=== PATIENT | male | born 1970 | race Caucasian/White ===

== ENCOUNTER 2024-07-06 17:28 | Inpatient (IN) ==
--- NOTE | 2024-07-06 18:27 | Emergency Department Note ---
Impression & Plan Chest pain, Non-ST elevation SD (NSTEMI) ED Provider Note HISTORY OF PRESENT ILLNESS: Patient is a 54-year-old male presenting with chest pain and left arm pain. Patient reports about 1 hour prior to arrival, he was driving his car when he suddenly developed a left-sided chest pressure and his left arm started to hurt. He denies any diaphoresis, nausea or vomiting. Denies any significant shortness of breath with the pain. Reports that pain was very intense at onset, but is since decreased in intensity. He currently is complaining of pain in the left arm and about 2 out of 10. He states that he became lightheaded with the pain but denies any radiation into the abdomen or into the back. He denies any changes in vision with the chest pain. He describes the pain as a "fullness" sensation in his chest "like I ate too much." Patient denies any history of cardiac stents. Denies any DVT or PE history. He is not on any anticoagulation or antiplatelet therapy. He did take an 81 mg aspirin prior to arrival given his symptoms. He does report a significant family history of cardiac disease. Denies any tobacco use. He has never had a stress test before. ROS: as above PHYSICAL EXAM: Constitutional: Patient appears in no acute distress. HENT: Head: Normocephalic and atraumatic. Eyes: EOMI, PERRL Mouth/Throat: Mucous membranes moist. Neck: Trachea midline. Neck supple. Cardiovascular: RRR, No murmurs, rubs or gallops. Intact distal pulses. Pulmonary/Chest: No respiratory distress. Breath sounds clear and equal bilaterally. No wheezes or rales. Abdominal: Abdomen soft, no tenderness, rebound or guarding. Musculoskeletal: No edema, tenderness or deformity noted. Skin: Warm and dry. No rash, erythema, pallor or cyanosis Psychiatric: Appropriate mood and affect for situation. Neurological: Alert and keenly responsive. CN II-XII grossly intact, moving all extremities equally and fully. MDM: - Vitals signs showed hypertension - History obtained via patient. History as above. - Chronic conditions affecting care: GERD - Differential diagnoses include, but are not limited to: Acute coronary syndrome; pulmonary embolism; dissection; tension pneumothorax; esophageal rupture; pneumonia - Order placed for continuous cardiac monitoring. At this time, monitor showed rate of 82 bpm with normal sinus rhythm, per my interpretation. - External medical records reviewed. Primary care visit note dated 05/15/2024 was reviewed. Patient was seen for bilateral lower abdominal pain and thought to be due to constipation. - EKG image interpreted by myself showed normal sinus rhythm. Rate 75 bpm. QT 398. No acute ischemic changes. - Laboratory workup interpreted by myself showed normal WBC; normal PT/NR; stable electrolytes; elevated troponin (31.9); normal lipase - CXR image reviewed by myself is negative for pneumonia, per my interpretation. - While awaiting workup to be completed at 18:40, patient started complaining of chest pain and left arm pain again. A repeat EKG image obtained at 18:41 reviewed by myself showed normal sinus rhythm. Rate 75 bpm. QT 398. No acute ischemic changes. Patient was ordered 50 mcg IV fentanyl. - Patient took 81 mg PO aspirin earlier prior to arrival. Given 243 mg PO aspirin to complete aspirin load - HEART score 4 (History +1 moderately suspicious; EKG +0; Age +1; Risk factors +1; Initial troponin +1), amounting to a moderate score. - Repeat troponin ordered. - Patient with recurrent episodes of chest pain in the emergency department. Given his elevated troponin and no history of stress test or echocardiogram or formal cardiac workup, will admit to hospitalist service for further evaluation. - Discussion was had with top case assembler about patient's case and need for admission - Hospitalist consulted for admission - Patient admitted to [facility] hospitalist service for further evaluation and management. ASSESSMENT AND PLAN: Diagnosis: chest pain; NSTEMI Plan: admit Past Med/Surg History Problem List (Updated 07/06/24 @ 20:16 by Josefa Willingham MD) Non-ST elevation SD (NSTEMI) (Acute) Chest pain (Acute) Bilateral lower abdominal pain Surgical History (Updated 05/25/24 @ 07:59 by KACEY Garnett) H/O hernia repair 2017 Family History (Updated 05/25/24 @ 08:00 by KACEY Garnett) Grandmother Diabetes Sister Hypertension Myocardial infarction Mother Hypertension Myocardial infarction Father CHF (congestive heart failure) Prostate cancer Brother Prostate cancer Denies family history of Ovarian cancer Breast cancer Colorectal cancer Social History (Updated 05/25/24 @ 08:01 by KACEY Garnett) Smoking Status: Never smoker Second Hand Exposure: No; Do You Dip or Chew Tobacco: No; Hx Alcohol Use: Yes Alcohol Intake Frequency: Monthly or Less Hx Substance Use: No Preferred Language: [place] marital status: Current Living Situation: Spouse current occupational status: employed current occupation: [employer] Feels Safe at Home: Yes Diet: regular caffeine: Yes (tea) during the past year weight has: remained stable Dental Care, Regularly: No Physical Activity Frequency: 1-2 Times per Week Seatbelt Use: always Sunscreen Use: Yes Do you think of yourself as: straight/heterosexual Gender Identity: Male Allergies Allergies Allergy/AdvReac Type Severity Reaction Status Date / Time No Known Allergies Allergy Verified 05/25/24 07:55 Home Meds Home Medications Medication Instructions Recorded Confirmed ascorbic acid (vitamin C) 500 mg 500 mg PO DAILY 05/25/24 05/25/24 capsule,extended release ascorbic acid (vitamin C) 500 mg 500 mg PO DAILY 05/25/24 05/25/24 tablet cholecalciferol (vitamin D3) 50 50 mcg PO DAILY 05/25/24 05/25/24 mcg (2,000 unit) capsule glutathione 500 mg capsule mg PO 05/25/24 05/25/24 omega 0-gii-ffm-fish oil 60 mg-90 1 cap PO DAILY 05/25/24 05/25/24 mg-500 mg capsule (Fish Oil) omeprazole 20 mg capsule,delayed 20 mg PO DAILY 05/25/24 05/25/24 release Results & Data (ED) Vital Signs Vital Signs - 24 hr 07/06/24 17:29 07/06/24 17:46 07/06/24 17:57 Temperature 36.2 C L Temperature Source Temporal Artery Scan Pulse Rate 89 84 81 Pulse Rate [Apical] Respiratory Rate 20 18 Respiratory Effort / Characteristics Non-Labored Respiratory Depth Normal Blood Pressure 188/96 H Blood Pressure [Right Arm] Blood Pressure Mean 126 Blood Pressure Mean [Right Arm] Pulse Oximetry 97 97 Oxygen Delivery Method Room Air Room Air Sepsis Recent Fever Within 48 Hours No Sepsis New/Unexplained Change in Mental Status N/A Sepsis Action Taken by Nursing No Action Required 07/06/24 19:00 07/06/24 20:00 Temperature Temperature Source Pulse Rate Pulse Rate [Apical] 74 77 Respiratory Rate 16 16 Respiratory Effort / Characteristics Non-Labored Non-Labored Respiratory Depth Blood Pressure Blood Pressure [Right Arm] 170/98 H 172/114 H Blood Pressure Mean Blood Pressure Mean [Right Arm] 122 133 Pulse Oximetry 96 97 Oxygen Delivery Method Room Air Room Air Sepsis Recent Fever Within 48 Hours Sepsis New/Unexplained Change in Mental Status Sepsis Action Taken by Nursing Laboratory Data 07/06/24 18:40 07/06/24 18:40 Lab Results 07/06/24 Range/Units 18:40 WBC 9.47 (4.8-10.8) K/ul RBC 5.17 (4.70-6.10) M/uL Hgb 15.0 (14.0-18.0) g/dl Hct 43.8 (42.0-52.0) % MCV 84.7 (80.0-100.0) fL MCH 29.0 (25.0-34.0) pg MCHC 34.2 (32.0-36.0) g/dL RDW Std Deviation 38.9 (36.4-46.3) fL RDW Coeff of Geovanny 12.5 (11.5-14.5) % Plt Count 249 (130-400) K/uL MPV 9.2 L (9.4-12.4) fL Immature Gran % (Auto) 0.6 % Neut % (Auto) 75.6 % Lymph % (Auto) 12.6 % Prentiss % (Auto) 9.7 % Eos % (Auto) 1.3 % Baso % (Auto) 0.2 % Neut # (Auto) 7.16 H (1.40-6.50) K/uL Lymph # (Auto) 1.19 L (1.20-3.40) K/uL Prentiss # (Auto) 0.92 H (0.11-0.59) K/uL Eos # (Auto) 0.12 (0.00-0.50) K/uL Baso # (Auto) 0.02 (0.00-0.20) K/uL Immature Gran # (Auto) 0.06 (0.01-0.20) K/uL PT 10.2 (9.0-12.0) Seconds INR 0.9 (0.9-1.1) Sodium 142 (136-145) mmol/L Potassium 4.0 (3.5-5.1) mmol/L Chloride 108 H (98-107) mmol/L Carbon Dioxide 27 (21-32) mmol/L Anion Gap 7 (3-11) BUN 17 (6-23) mg/dl Creatinine 0.95 (0.6-1.4) mg/dl Est Cr Clr Drug Dosing 103.9 ml/min eGFR 95.12 BUN/Creatinine Ratio 17.9 (10-20) Glucose 106 H (70-99(Fasting)) mg/dl Calcium 8.9 (8.6-10.3) mg/dl Magnesium 2.1 (1.7-2.4) mg/dl Total Bilirubin 0.5 (0.2-1.0) mg/dl AST 16 (13-39) U/L ALT 22 (7-52) U/L Alkaline Phosphatase 53 (34-104) U/L Troponin I High Sens 31.9 H (0-20) pg/ml Total Protein 7.1 (6.0-8.3) gm/dl Albumin 4.6 (3.4-5.0) gm/dl Globulin 2.5 (2.5-4.0) gm/dl Albumin/Globulin Ratio 1.8 (0.9-2) Lipase 44 (11-82) U/L Administered Medications Discontinued Medications Aspirin (Aspirin Chew 324 Mg) 243 mg PO NOW STA Stop: 07/06/24 19:48 Last Admin: 07/06/24 20:26 Dose: 243 mg Documented By: SILVA Fentanyl Citrate (Fentanyl Citrate Pf 100 Mcg/2 Ml Vial) 50 mcg IV NOW STA Stop: 07/06/24 18:49 Last Admin: 07/06/24 19:02 Dose: 50 mcg Documented By: SILVA Ioversol (Optiray 320 125ml) 120 ml IV ONCE ONE Stop: 07/06/24 19:49 Last Admin: 07/06/24 19:49 Dose: 120 ml Documented By: EDK Imaging Data Radiologist's Impression: Chest X-Ray 07/06/24 17:46 EXAM: Portable AP chest radiograph TECHNIQUE: AP portable radiograph of the chest was obtained. INDICATION: Shortness of breath Comparison: Chest radiograph May 25, 2024 FINDINGS: LINES and TUBES: None CARDIOVASCULAR: Cardiac silhouette is stably mildly enlarged in size. LUNGS/PLEURA: Mild pulmonary vascular congestion. No focal consolidation identified. No significant pleural fluid. No discernible pneumothorax. OSSEOUS/OTHER: No displaced acute osseous process identified. IMPRESSION: Mild congestive changes of the cardiovascular system. Electronically signed by Sb Childress 07-06-2024 6:35 PM Chest CTA 07/06/24 18:48 EXAM: CT Angiography Chest Without and With Intravenous Contrast INDICATION: Chest pain TECHNIQUE: Axial computed tomographic angiography images of the chest without and with intravenous contrast. Sagittal and coronal reformatted images were created and reviewed. This CT exam was performed using one or more of the following dose reduction techniques: automated exposure control, adjustment of the mA and/or kV according to patient size, and/or use of iterative reconstruction technique. MIP reconstructed images were created and reviewed. CONTRAST: 120ml of Optiray 320 was administered intravenously. COMPARISON: No relevant prior studies available. FINDINGS: Pulmonary arteries: No abnormality noted. No pulmonary embolism. Aorta: No acute change noted. No thoracic aortic aneurysm or dissection. Lungs and pleural spaces: No abnormality noted. No mass. No consolidation. No significant effusion. No pneumothorax. Heart: Mild cardiomegaly. No right heart strain or pericardial effusion. Mild left anterior coronary calcification. Prominent left ventricular wall thickness of 1.8 cm. Bones/joints: No acute or atypical chronic changes. Soft tissues: No abnormality noted. Lymph nodes: No abnormality noted. No enlarged lymph nodes. Adrenals: There is a 3.5 x 2.6 by approximate 3.0 cm mild lipoma in the right adrenal gland. No hemorrhage. No further assessment necessary. Visualized portion of the adrenal glands otherwise unremarkable. IMPRESSION: 1. No aortic dissection or aneurysm. 2. No pulmonary embolus. 3. Mild cardiomegaly and left ventricular hypertrophy. There is mild left anterior coronary calcification. 4. No pulmonary infiltrate or pleural effusion. ACT 112: N/A Electronically signed by Trish Kearns 07-06-2024 8:16 PM Discharge Plan Visit Data Chief Complaint: Chest Pain ED Provider: Josefa Willingham Discharge Problem: Chest pain, Non-ST elevation SD (NSTEMI) Forms Stand Alone Forms: D-Share Prescriptions Prescriptions: No Action omeprazole 20 mg capsule,delayed release(DR/EC) 20 mg PO DAILY glutathione 500 mg capsule PO ascorbic acid (vitamin C) 500 mg capsule, extended release 500 mg PO DAILY omega 6-yrl-fue-fish oil [Fish Oil] 60-90-500 mg capsule 1 cap PO DAILY ascorbic acid (vitamin C) 500 mg tablet 500 mg PO DAILY cholecalciferol (vitamin D3) 50 mcg (2,000 unit) capsule 50 mcg PO DAILY Referrals Referrals: Evonne Byrne MD [Primary Care Provider] -
--- NOTE | 2024-07-06 18:35 | XRay Report ---
EXAM: Portable AP chest radiograph TECHNIQUE: AP portable radiograph of the chest was obtained. INDICATION: Shortness of breath Comparison: Chest radiograph May 25, 2024 FINDINGS: LINES and TUBES: None CARDIOVASCULAR: Cardiac silhouette is stably mildly enlarged in size. LUNGS/PLEURA: Mild pulmonary vascular congestion. No focal consolidation identified. No significant pleural fluid. No discernible pneumothorax. OSSEOUS/OTHER: No displaced acute osseous process identified. IMPRESSION: Mild congestive changes of the cardiovascular system. Electronically signed by Sb Childress 07-06-2024 6:35 PM
[2024-07-06] MEDS: fentaNYL citrate PF 100 MCG/2 ML VIAL IV STA (19:02)
[2024-07-06 19:07] LABS: Basophils # (auto) 0.02 K/uL (0.00-0.20); Basophils % (auto) 0.2 %; Eosinophils # (auto) 0.12 K/uL (0.00-0.50); Eosinophils % (auto) 1.3 %; Hematocrit (blood only) 43.8 % (42.0-52.0); Immature Granulocytes # (auto) 0.06 K/uL (0.01-0.20); Immature Granulocytes % (auto) 0.6 %; Lymphocytes # (auto) 1.19 K/uL (1.20-3.40); Lymphocytes % (auto) 12.6 %; Mean Corpuscular Hgb Conc 34.2 g/dL (32.0-36.0); Mean Corpuscular Volume 84.7 fL (80.0-100.0); Mean Platelet Volume 9.2 fL (9.4-12.4); Monocytes # (auto) 0.92 K/uL (0.11-0.59); Monocytes % (auto) 9.7 %; Neutrophils # (auto) 7.16 K/uL (1.40-6.50); Neutrophils % (auto) 75.6 %; Platelet Count 249 K/uL (130-400); RDW Coefficient of Variation 12.5 % (11.5-14.5); RDW Standard Deviation 38.9 fL (36.4-46.3); Red Blood Count 5.17 M/uL (4.70-6.10); White Blood Count 9.47 K/ul (4.8-10.8)
[2024-07-06 19:19] LABS: Albumin Globulin Ratio 1.8 (0.9-2); Albumin Level 4.6 gm/dl (3.4-5.0); BUN Creatinine Ratio 17.9 (10-20); Bilirubin,Total 0.5 mg/dl (0.2-1.0); Calcium 8.9 mg/dl (8.6-10.3); Creatinine Clr Calc Pharmacy 103.9 ml/min; Globulin 2.5 gm/dl (2.5-4.0); Magnesium 2.1 mg/dl (1.7-2.4); Total Protein 7.1 gm/dl (6.0-8.3)
[2024-07-06 19:25] LABS: Troponin I High Sensitivity 31.9 pg/ml (0-20)
[2024-07-06 19:39] LABS: INR 0.9 (0.9-1.1); Prothrombin Time 10.2 Seconds (9.0-12.0)
[2024-07-06] MEDS: OPTIRAY 320 125ml IV ONE (19:49)
--- NOTE | 2024-07-06 20:17 | CT Scan Report ---
EXAM: CT Angiography Chest Without and With Intravenous Contrast INDICATION: Chest pain TECHNIQUE: Axial computed tomographic angiography images of the chest without and with intravenous contrast. Sagittal and coronal reformatted images were created and reviewed. This CT exam was performed using one or more of the following dose reduction techniques: automated exposure control, adjustment of the mA and/or kV according to patient size, and/or use of iterative reconstruction technique. MIP reconstructed images were created and reviewed. CONTRAST: 120ml of Optiray 320 was administered intravenously. COMPARISON: No relevant prior studies available. FINDINGS: Pulmonary arteries: No abnormality noted. No pulmonary embolism. Aorta: No acute change noted. No thoracic aortic aneurysm or dissection. Lungs and pleural spaces: No abnormality noted. No mass. No consolidation. No significant effusion. No pneumothorax. Heart: Mild cardiomegaly. No right heart strain or pericardial effusion. Mild left anterior coronary calcification. Prominent left ventricular wall thickness of 1.8 cm. Bones/joints: No acute or atypical chronic changes. Soft tissues: No abnormality noted. Lymph nodes: No abnormality noted. No enlarged lymph nodes. Adrenals: There is a 3.5 x 2.6 by approximate 3.0 cm mild lipoma in the right adrenal gland. No hemorrhage. No further assessment necessary. Visualized portion of the adrenal glands otherwise unremarkable. IMPRESSION: 1. No aortic dissection or aneurysm. 2. No pulmonary embolus. 3. Mild cardiomegaly and left ventricular hypertrophy. There is mild left anterior coronary calcification. 4. No pulmonary infiltrate or pleural effusion. ACT 112: N/A Electronically signed by Trish Kearns 07-06-2024 8:16 PM
[2024-07-06] MEDS: ASPIRIN CHEW 324 MG PO STA (20:26)
--- NOTE | 2024-07-06 21:35 | History & Physical Report ---
Date of Service July 06, 2024 Assessment & Plan (1) Non-ST elevation [place] (NSTEMI): (2) GERD (gastroesophageal reflux disease): Plan 54 yo male PMHx GERD/PUD admitted for chest pain. Chest pain started today described as substernal burning pain that radiates down the left arm. #NSTEMI Trend trop q6h Echo ordered BMP, lipid panel ordered for AM Per cardiology, defer anticoagulation for now Pain control PRN EKG PRN chest pain Defer heparin for now CT Chest Shows: Mild cardiomegaly and left ventricular hypertrophy. There is mild left anterior coronary calcification. Will start statin Cardiology consult placed #GERD/Hx PUD Protonix 40mg daily while admitted FENGI: Heart healthy Code status: full DVT prophylaxis: Lovenox Isolation: none Disposition: med/tele History of Present Illness Primary Care Provider: Evonne Byrne MD 54 yo male PMHx GERD/PUD admitted for chest pain. Chest pain started today described as substernal burning pain that radiates down the left arm. This is the first time that he has experienced this type of chest discomfort. He does have an extensive family history of cardiac disease. He denies smoking history, he is not a big drinker. Early this year he changed his diet to incorporate more vegetables and lean proteins. Yesterday was his birthday and today he went out to lunch at [facility] where he consumed a heavy meal and two margaritas. At the time of admission the patient denies ongoing chest pain. ED Course EKG without ischemic changes CTPE largely unremarkable: 1. No aortic dissection or aneurysm. 2. No pulmonary embolus. 3. Mild cardiomegaly and left ventricular hypertrophy. There is mild left anterior coronary calcification. 4. No pulmonary infiltrate or pleural effusion. CXR reveals: Mild pulmonary vascular congestion Labs reveal: HS Trop 31.9 --> 118.8 Pt is hypertensive, otherwise VSS Received 324 ASA, fentanyl 50 mcg Allergies Allergy/AdvReac Type Severity Reaction Status Date / Time No Known Allergies Allergy Verified 07/06/24 22:16 Home Medications Medication Instructions Recorded Confirmed Type ascorbic acid (vitamin C) 500 mg 500 mg PO DAILY 05/25/24 07/06/24 History capsule,extended release omega 5-qjx-lpv-fish oil 60 mg-90 1 cap PO DAILY 05/25/24 07/06/24 History mg-500 mg capsule (Fish Oil) omeprazole 20 mg capsule,delayed 20 mg PO DAILY 05/25/24 07/06/24 History release aspirin 81 mg capsule 81 mg PO DAILY 07/06/24 07/06/24 History diclofenac sodium 75 mg 74 mg PO 2XD PRN Inflammation 07/06/24 07/06/24 History tablet,delayed release Past Med/Surg History Problem List (Updated 07/06/24 @ 22:04 by Constantin Aparicio DO) GERD (gastroesophageal reflux disease) Non-ST elevation WI (NSTEMI) (Acute) Chest pain (Acute) Bilateral lower abdominal pain Surgical History (Updated 05/25/24 @ 07:59 by KACEY Garnett) H/O hernia repair 2016 Family History (Updated 05/25/24 @ 08:00 by KACEY Garnett) Grandmother Diabetes Sister Hypertension Myocardial infarction Mother Hypertension Myocardial infarction Father CHF (congestive heart failure) Prostate cancer Brother Prostate cancer Denies family history of Ovarian cancer Breast cancer Colorectal cancer Social History (Updated 05/25/24 @ 08:01 by KACEY Garnett) Smoking Status: Never smoker Second Hand Exposure: No; Do You Dip or Chew Tobacco: No; Hx Alcohol Use: Yes Alcohol type: beer and hard liquor Alcohol Intake Frequency: Monthly or Less Hx Substance Use: No Preferred Language: Greek Communication Ability: Effective Information Services Assistant Required: No Beliefs That Will Affect Care: None marital status: Current Living Situation: Spouse current occupational status: employed current occupation: [employer] Other Information That Helps Us Care for You: No Feels Safe at Home: Yes Safety Concerns: Feels Safe At This Time Diet: regular caffeine: Yes (tea) during the past year weight has: remained stable Dental Care, Regularly: No Physical Activity Frequency: 1-2 Times per Week Seatbelt Use: always Sunscreen Use: Yes Do you think of yourself as: straight/heterosexual Gender Identity: Male Review of Systems Review of Systems: reviewed, per HPI Physical Exam Physical Exam: Constitutional: well-appearing, no acute distress, face flushed HEENT: NCAT, no conjunctival injection CV: regular rhythm, no murmur appreciated, extremities well-perfused, no LE edema Resp: CTABL, no wheezes/rales/rhonchi appreciated, no increased work of breathing GI: nondistended MSK: no gross deformities appreciated Skin: warm, dry, no rash appreciated Neuro: alert, oriented, no focal neurologic deficit appreciated Results & Data Results & Data Vital Signs (Past 12 Hours) Vital Signs Temp Pulse Pulse Resp BP BP Pulse Ox 07/06/24 21:00 87 18 163/111 H 93 07/06/24 20:00 77 16 172/114 H 97 07/06/24 19:00 74 16 170/98 H 96 07/06/24 17:57 81 07/06/24 17:46 84 18 97 07/06/24 17:29 36.2 C L 89 20 188/96 H 97 O2 Del Method 07/06/24 21:00 Room Air 07/06/24 20:00 Room Air 07/06/24 19:00 Room Air 07/06/24 17:57 07/06/24 17:46 Room Air 07/06/24 17:29 Room Air Code Status & VTE Plan VTE Prophylaxis Plan VTE Prophylaxis will be ordered: Yes Supervising Physician Co-Signing Physician Notes Attending addendum: I have physically seen this patient, have supervised the medical residents activities, and agree with the H&P unless as otherwise noted. Assessment and Plan: The patient is a 54-year-old male with a past medical history including GERD, peptic ulcer disease, arthritis, who presents to the emergency department with complaint of substernal burning pain that radiates down his left arm that began about 1 hour prior to arrival to the emergency department. He also notes that he became lightheaded while walking. Initial evaluation in the emergency department included elevated troponin 31.9, and chest x-ray suggestive of possible mild congestion, with with normal CT angiography of chest. [facility]ated troponin/substernal chest pain radiating to left arm- The patient will be admitted to telemetry for serial cardiac enzymes, serial EKG's, cardiac rhythm monitoring and a 2-D echocardiogram with Dopplers. No previous records of chest discomfort and or workup Initial troponin 31.9, with second troponin 118.8. Third troponin is 307.6. Patient will be placed on Nitropaste 1 inch anterior chest wall every 6 hours, and start metoprolol tartrate 25 mg p.o. now and then 25 mg p.o. twice daily. Check a fasting lipid panel and hemoglobin A1c CTA PE protocol is negative for PE, but does show mild cardiomegaly and LVH. There is mild left anterior coronary calcification noted Start statin per protocol Given aspirin 324 mg now, and 81 mg every morning Consult cardiology GERD/PUD history- Continue pantoprazole as formulary interchange from omeprazole Hold NSAIDs while patient is on antiplatelet effect of aspirin Resident Activity Tracking Resident Involvement: Resident Care Provided Care Provided: Adult [facility] Medicine
[2024-07-06] MEDS ORDERED: HEPARIN SOD (PORCINE) 1000 UNIT/ML IV ONE (21:50)
[2024-07-06] MEDS ORDERED: HEPARIN 25000 UNIT/500 ML D5W 25,000 UNITS/500 ML BAG IV SCH (22:00)
[2024-07-06] MEDS: FAMOTIDINE 20MG IV PUSH 20 MG/5 ML SYR IV STA (22:15)
[2024-07-06] MEDS ORDERED: ONDANSETRON INJ 2 MG/ML 2 ML VIAL IV PRN (22:46)
[2024-07-06] MEDS: Heparin IV Adult Wt-Based Standard w/ INITIAL Bolus Protocol IV STA (22:46)
[2024-07-06] MEDS ORDERED: MAGNESIUM HYDROXIDE SUSP 30 ML UDC PO PRN (22:46)
[2024-07-06] MEDS: ENOXAPARIN INJ 40 MG/0.4 ML SYR SQ SCH (23:35)
--- NOTE | 2024-07-07 03:56 | Billing Data ---
Date of Service July 07, 2024 Coding Level of Care Code 25481 INT INP/OBS CARE
[2024-07-07] MEDS: NITROGLYCERIN 2% OINTMENT 30GM TUBE EXT SCH (04:15)
[2024-07-07] MEDS: METOPROLOL TARTRATE 25 MG TAB PO STA (04:15)
[2024-07-07] MEDS: ROSUVASTATIN CALCIUM 20 MG TAB PO SCH (08:00)
[2024-07-07] MEDS: PANTOprazole 40 MG TAB PO SCH ×2 (08:00→20:10)
[2024-07-07] MEDS: METOPROLOL TARTRATE 25 MG TAB PO SCH (08:00)
[2024-07-07 08:31] LABS: BUN Creatinine Ratio 16.3 (10-20); Calcium 8.6 mg/dl (8.6-10.3); Chol HDL Ratio 6.8 (0-5); Creatinine Clr Calc Pharmacy 106.9 ml/min; Potassium 4.1 mmol/L (3.5-5.1)
[2024-07-07] MEDS: CALCIUM CARBONATE 500 MG CHEWABLE TAB PO PRN (09:28)
[2024-07-07] MEDS: ACETAMINOPHEN 500 MG TAB PO PRN (09:28)
[2024-07-07] MEDS: ALUMINUM/MAGNESIUM SUSP 30 ML UDC PO PRN (09:50)
--- NOTE | 2024-07-07 10:16 | XCELERA ---
[id number]
--- NOTE | 2024-07-07 10:20 | Hospitalist Progress Note ---
Date of Service July 07, 2024 Assessment & Plan (1) Non-ST elevation HI (NSTEMI): (2) GERD (gastroesophageal reflux disease): Plan 54 yo male PMHx GERD/PUD admitted for chest pain. Chest pain started today described as substernal burning pain that radiates down the left arm. #NSTEMI Still complaining of chest/right flank discomfort, radiating to the shoulder CT Chest Shows: Mild cardiomegaly and left ventricular hypertrophy. There is mild left anterior coronary calcification. Troponin has been trending up, [phone] Will start heparin by weight Echo showed EF 55-60%, no wall motion abnormality EKG, no ST changes, will repeat EKG Cardiology on consult Pain control PRN #GERD/Hx PUD Protonix 40mg daily while admitted Tums Will check liver US given flank discomfort FENGI: Heart healthy Code status: full DVT prophylaxis: Lovenox Isolation: none Disposition: med/tele Admission and Anticipated Discharge Date Admission Date: July 06, 2024 Subjective patient seen and examined, still complains of chest/right flank discomfort, radiating to the shoulder Review of Systems Review of Systems: All systems reviewed are negative, apart from the ones contained in the history. Physical Exam Physical Exam: The patient is awake, alert and oriented 3, well developed and well nourished, normocephalic and atraumatic, lying in bed and in no acute distress. HEENT--PERRL, EOMI, mucous membranes and oropharynx mildly dry Neck--supple. No JVD. No bruits. Thyroid normal, trachea midline, no adenopathy. Heart--normal S1 and S2. No murmurs, rubs or gallops. Lungs--clear bilaterally, no respiratory distress, no accessory muscle use. Abdomen--normal bowel sounds and soft. Extremities--no cyanosis or clubbing. No edema. Dermatologic--normal skin turgor, normal color, no abnormal lymph nodes, no rash. Neurologic--cranial nerves II through XII grossly intact. Rheumatologic--normal range of motion. Psychiatric--normal affect. Results & Data Results & Data Vital Signs (Past 12 Hours) Vital Signs Temp Pulse Pulse Resp BP Pulse Ox O2 Del Method 07/07/24 07:30 97.9 F 67 16 130/84 95 Room Air 07/07/24 07:12 62 07/07/24 03:51 97.9 F 80 16 159/70 H 95 Room Air 07/06/24 22:55 87 07/06/24 22:30 98.1 F 76 18 169/98 H 99 Room Air PG Care Time/CCT Total # of Minutes Spent Total Time Spent with Patient: Total time spent is greater than 50% in coordination of care (as documented) at patient's floor/unit and/or counseling patient: Coding Level of Care Code 50341 SUB INP/OBS CARE 2/35MIN Diagnoses Non-ST elevation HI (NSTEMI) I21.4 GERD (gastroesophageal reflux disease) K21.9 Time Spent (min) 35
[2024-07-07] MEDS: MoRPHine SULFATE 2 MG/ML CARP IV STA (10:35)
[2024-07-07] MEDS: HEPARIN 25000 UNIT/500 ML D5W IV ONE (10:54)
[2024-07-07] MEDS: HEPARIN 25000 UNIT/500 ML D5W 25,000 UNITS/500 ML BAG IV SCH (10:54)
[2024-07-07] MEDS: Heparin IV Adult Wt-Based Standard *NO* INITIAL Bolus Protocol IV STA (10:54)
--- NOTE | 2024-07-07 11:29 | XRay Report ---
HISTORY: Heart alert. TECHNIQUE: PA radiograph of the chest. COMPARISON: Chest radiograph date07/06/2024. FINDINGS: No focal consolidation. No pneumothorax or pleural effusion. Normal heart size. Left-sided aortic arch. Midline trachea. No acute osseous abnormality. Included upper abdomen is unremarkable. IMPRESSION: No acute cardiopulmonary findings. Electronically signed by Ramírez Lawson 07-07-2024 11:28 AM
--- NOTE | 2024-07-07 11:32 | Cardiology Consultation ---
Date of Consultation July 07, 2024 Assessment & Plan (1) Acute coronary syndromes: -Patient has ongoing chest discomfort and now new ST elevation in anterior leads. -Continue heparin drip. -Contacted Dr. Watters and a heart alert was called. -Further recommendations after the cardiac catheterization. History of Present Illness Attending Physician: Melisa Pappas MD History of Present Illness Mr. Hale is a 54-year-old male admitted yesterday with a chest pain syndrome. This consultation was ordered to assist in his cardiac management. The patient was in his usual state of health until approximately 1 day prior to presentation. He had several episodes of a substernal chest burning radiating down his left arm. There was associated diaphoresis but no nausea or vomiting. Each episode lasted approximately 15 minutes and resolved spontaneously. Therefore, he presented to the emergency room for an evaluation. He did have an episode of discomfort while in the emergency room. There were no acute EKG changes. Initial troponin was 31.9 and has increased to 398. This morning, the patient had a recurrent episode of substernal chest burning radiating to the left arm with associated diaphoresis. The patient rated it as a 10 out of 10 discomfort. I did see the patient at the bedside and he was in distress. His discomfort did respond to intravenous morphine. He was placed on a heparin drip. His EKG noted inferior wall ST elevation, and therefore, a heart alert was called. I did accompany the patient to the cardiac catheterization laboratory and transferred him to Dr. Watters's care. Allergies Allergy/AdvReac Type Severity Reaction Status Date / Time No Known Allergies Allergy Verified 07/06/24 22:16 Home Medications Medication Instructions Recorded Confirmed Type ascorbic acid (vitamin C) 500 mg 500 mg PO DAILY 05/25/24 07/06/24 History capsule,extended release omega 6-fmc-fuu-fish oil 60 mg-90 1 cap PO DAILY 05/25/24 07/06/24 History mg-500 mg capsule (Fish Oil) omeprazole 20 mg capsule,delayed 20 mg PO DAILY 05/25/24 07/06/24 History release aspirin 81 mg capsule 81 mg PO DAILY 07/06/24 07/06/24 History diclofenac sodium 75 mg 74 mg PO 2XD PRN Inflammation 07/06/24 07/06/24 History tablet,delayed release Patient History Surgical History (Updated 05/25/24 @ 07:59 by KACEY Garnett) H/O hernia repair 2017 Family History (Updated 05/25/24 @ 08:00 by KACEY Garnett) Grandmother Diabetes Sister Hypertension Myocardial infarction Mother Hypertension Myocardial infarction Father CHF (congestive heart failure) Prostate cancer Brother Prostate cancer Denies family history of Ovarian cancer Breast cancer Colorectal cancer Social History (Updated 05/25/24 @ 08:01 by KACEY Garnett) Smoking Status: Never smoker Second Hand Exposure: No; Do You Dip or Chew Tobacco: No; Hx Alcohol Use: Yes Alcohol type: beer and hard liquor Alcohol Intake Frequency: Monthly or Less Hx Substance Use: No Preferred Language: Palestinian Communication Ability: Effective Liquor Commissioner Required: No Beliefs That Will Affect Care: None marital status: Current Living Situation: Spouse current occupational status: employed current occupation: [employer] Other Information That Helps Us Care for You: No Feels Safe at Home: Yes Safety Concerns: Feels Safe At This Time Diet: regular caffeine: Yes (tea) during the past year weight has: remained stable Dental Care, Regularly: No Physical Activity Frequency: 1-2 Times per Week Seatbelt Use: always Sunscreen Use: Yes Do you think of yourself as: straight/heterosexual Gender Identity: Male Physical Exam Physical Exam: In general this is a well-developed well-nourished white male in no acute distress. HEENT exam is negative. Neck reveals normal carotid upstrokes without bruits. Jugular venous pressure is flat at 90. There is no thyromegaly. Cardiovascular exam reveals a regular rhythm with a normal S1 and S2. No S3, S4, or murmurs are noted. Lungs are clear without rales, rhonchi, or wheezes. Abdomen is soft without bruits. Extremities reveal intact radial artery and posterior tibial pulses bilaterally. There is no peripheral edema. Results & Data Vital Signs (Past 12 Hours) Vital Signs Temp Pulse Pulse Resp BP Pulse Ox O2 Del Method 07/07/24 10:41 62 19 181/107 H 99 Room Air 07/07/24 07:30 36.6 C 67 16 130/84 95 Room Air 07/07/24 07:12 62 07/07/24 03:51 36.6 C 80 16 159/70 H 95 Room Air Laboratory Results Initial high-sensitivity troponin was 31.9 with follow-up values of 119, 308, and 398. Diagnostic Findings Most recent EKG notes sinus rhythm with poor R wave progression and inferior ST elevation. CT scan of the chest showed no evidence of an aortic dissection or pulmonary embolism. Echocardiogram notes normal left ventricular systolic function with an ejection fraction of 55 to 60%. There were no wall motion abnormalities. There is mild LVH along with mild mitral regurgitation. PG Care Time/CCT Total # of Minutes Spent Total Time Spent with Patient: Total time spent is greater than 50% in coordination of care (as documented) at patient's floor/unit and/or counseling patient: Coding Level of Care Code 33553 IN/OBS CONSULT LVL 5,80M Diagnoses Acute coronary syndromes I24.9
[2024-07-07] MEDS: niCARdipine HCL INJ 2.5 MG/ML 10 ML AMP ONE (11:50)
[2024-07-07] MEDS: MIDAZOLAM HCL 1 MG/ML 2ML VIAL ONE ×2 (11:51→12:04)
[2024-07-07] MEDS: NITROGLYCERIN/D5W 100MCG/ML 20ML SYR ONE (11:51)
[2024-07-07] MEDS ORDERED: NITROGLYCERIN SL 0.4 MG/TAB TAB SL PRN (12:03)
[2024-07-07] MEDS ORDERED: ATROPINE SULFATE 0.1 MG/ML 10ML SYR IV PRN (12:03)
[2024-07-07] MEDS ORDERED: ONDANSETRON INJ 2 MG/ML 2 ML VIAL IV PRN (12:03)
--- NOTE | 2024-07-07 12:03 | Pre Anesthesia Assessment ---
Date of Service July 07, 2024 Pre Sedation Assessment Vital Signs Temp Pulse Pulse Pulse Resp BP BP 07/07/24 10:41 62 19 181/107 H 07/07/24 07:30 36.6 C 67 16 130/84 07/07/24 07:12 62 07/07/24 03:51 36.6 C 80 16 159/70 H 07/06/24 22:55 87 07/06/24 22:30 36.7 C 76 18 169/98 H 07/06/24 22:00 36.7 C 88 18 160/101 H 07/06/24 21:53 85 07/06/24 21:00 87 18 163/111 H 07/06/24 20:00 77 16 172/114 H 07/06/24 19:00 74 16 170/98 H 07/06/24 17:57 81 07/06/24 17:46 84 18 07/06/24 17:29 36.2 C L 89 20 188/96 H Pulse Ox O2 Del Method 07/07/24 10:41 99 Room Air 07/07/24 07:30 95 Room Air 07/07/24 07:12 07/07/24 03:51 95 Room Air 07/06/24 22:55 07/06/24 22:30 99 Room Air 07/06/24 22:00 97 Room Air 07/06/24 21:53 07/06/24 21:00 93 Room Air 07/06/24 20:00 97 Room Air 07/06/24 19:00 96 Room Air 07/06/24 17:57 07/06/24 17:46 97 Room Air 07/06/24 17:29 97 Room Air Cardiovascular RRR, no murmur, no edema Respiratory normal respiratory effort, lungs clear to auscultation Pre-Sedation Airway Assessment Smoking Status: Never smoker Mallampati 3 ASA 4 Notes The planned sedation has been discussed with the patient. Informed Consent was obtained. I have identified the patient, determined the appropriateness of sedation and have assessed the patient immediately prior to the procedure. All medicine(s) and interventions are by my order. [facility] [place] Procedure Codes (Charges) Indication for Procedure Indication for procedure: Non-ST elevation DC
[2024-07-07] MEDS: fentaNYL citrate PF 100 MCG/2 ML VIAL ONE (12:04)
[2024-07-07] MEDS: TICAGRELOR 90 MG TAB ONE (12:06)
[2024-07-07] MEDS: ASPIRIN 81 MG CHEW ONE (12:06)
[2024-07-07] MEDS: OPTIRAY 350 ONE (12:08)
[2024-07-07] MEDS: HEPARIN (PORCINE) 1000 UNIT/ML 10 ML (CATH LAB USE ONLY) ONE (12:08)
--- NOTE | 2024-07-07 12:10 | Post Anesthesia Assessment ---
Date of Service July 07, 2024 Post Sedation Assessment Vital Signs Temp Pulse Pulse Pulse Resp BP BP 07/07/24 10:41 62 19 181/107 H 07/07/24 07:30 36.6 C 67 16 130/84 07/07/24 07:12 62 07/07/24 03:51 36.6 C 80 16 159/70 H 07/06/24 22:55 87 07/06/24 22:30 36.7 C 76 18 169/98 H 07/06/24 22:00 36.7 C 88 18 160/101 H 07/06/24 21:53 85 07/06/24 21:00 87 18 163/111 H 07/06/24 20:00 77 16 172/114 H 07/06/24 19:00 74 16 170/98 H 07/06/24 17:57 81 07/06/24 17:46 84 18 07/06/24 17:29 36.2 C L 89 20 188/96 H Pulse Ox O2 Del Method 07/07/24 10:41 99 Room Air 07/07/24 07:30 95 Room Air 07/07/24 07:12 07/07/24 03:51 95 Room Air 07/06/24 22:55 07/06/24 22:30 99 Room Air 07/06/24 22:00 97 Room Air 07/06/24 21:53 07/06/24 21:00 93 Room Air 07/06/24 20:00 97 Room Air 07/06/24 19:00 96 Room Air 07/06/24 17:57 07/06/24 17:46 97 Room Air 07/06/24 17:29 97 Room Air Recovery Score Activity: Moves 4 extremities Respiration: Deep Breath/Cough Circulation: +/-20% PreAnes Value Consciousness: Fully Awake Discharge Sedation Level of Care: Fast Track Phase II Post Sedation Plan On clinical assessment, the patient appears to have tolerated the sedation without complications. Patient is recovering as anticipated. Patient will continue to be monitored by nursing and may be discharged when sedation discharge criteria are met per below protocol. Upon Completions of procedure up to 15 minutes continue every 5 minute vital signs and the P.A.R. score; then discharge to a Phase I or Fast Track to Phase II per the following guidelines: * Discharge Patient to appropriate Phase II area if PAR is 8 or greater or return to pre- procedure baseline. The post - procedure orders will be as directed. * If PAR score is less than 8 or not return to pre-procedure baseline then patient will follow Phase I monitoring till PAR is reached for Phase II. The Phase I may be done in procedure room or may call to secure a Phase I area. * If naloxone or flumazenil are used for reversal, hold in Phase I for continued monitoring from when last reversal dose was given for a minimum of 60 minutes or longer pending the nurse and/or physician discretion of patient condition before discharge to Phase II. Please call the Sedation Physician to re-evaluate and complete post-note for discharge to Phase II area. Do NOT discharge from procedure sedation or Phase 1 until post- sedation evaluation note is complete by procedure /sedation MD Sedation Discharge Instructions to be given to the patient at discharge to home. [facility] [place] Codes (Charges) Indication for Procedure Indication for procedure: NSTEMI Sedation/Anesthesia Procedure 1: Sedation/Anesthesia: 82475 Mod Sedation by the same physician;Init15 Min Child Age 5 & Up (Initial 15 minutes, start 1125) Total Sedation Time (minutes): 36 Procedure 2: Sedation/Anesthesia: 78948 Mod Sedation by the same physician; [id number] Minutes (Additional 21 minutes, end time 1201)
[2024-07-07] MEDS: AMIODARONE HCL INJ 50 MG/ML 3 ML VIAL (CATH LAB USE ONLY) IV ONE (12:21)
[2024-07-07] MEDS: CLOPIDOGREL BISULFATE 300 MG TAB ONE (12:21)
[2024-07-07] MEDS: ATROPINE SO4 1 MG/ML 1ML VIAL ONE (12:21)
[2024-07-07] MEDS: AMIODARONE 360MG / 200ML D5W (CATH LAB USE ONLY) IV ONE (12:21)
--- NOTE | 2024-07-07 12:30 | Critical Care Consultation ---
Date of Consultation July 07, 2024 Assessment & Plan (1) Acute coronary syndromes: (2) GERD (gastroesophageal reflux disease): (3) Chest pain: (4) Hypertension: (5) Hypersomnia: Plan 54-year-old male was admitted to the hospital because of chest pain. On the floor heart alert was called and patient was taken to the Machine [facility] Past medical history: GERD, peptic ulcer disease 2D echo 07/07/2024: EF 55-60%, mild MR, RV not well-visualized -- STEMI S/p CLIFF circumflex on 07/07/2024 Continue with dual antiplatelet therapy Trend troponin Follow-up repeat 2D echo -- GERD with peptic ulcer disease Continue with pantoprazole -- Hypersomnia I do recommend polysomnography to be done as an outpatient --Prophylaxis VTE: None GI: Pantoprazole Lines: Peripheral Diet: Cardiac Plan: Strict in and out Continue with metoprolol, Brilinta, aspirin and rosuvastatin Patient blood pressure has still been on the higher side, addition of MATIAS or an ARB will be the Continue to trend EKG and troponin Please note the above document was generated using voice recognition software. It may contain grammatical, syntax or spelling errors.Any formal questions or concerns about the content, text or information contained within the body of this dictation should be directly addressed to the provider for clarification. History of Present Illness Attending Physician: Melisa Pappas MD History of Present Illness 54-year-old male was admitted to the hospital because of chest pain Past medical history: GERD, peptic ulcer disease On the floor heart alert was called and patient was taken to the [facility] Patient was sent to the ICU for further care At the time of examination patient was resting comfortably. Not in any distress Saturation 97% on room air. Heart rate was in the 70s. Systolic blood pressure in the 150s with diastolic in the high 90s He stated he is feeling better compared to how he was prior to going to the [facility] Still complain of some soreness retrosternal, 2 out of 10 in intensity, still radiating to the left arm Denies any shortness of breath No dizziness, no palpitations No fever or chills No abdominal pain Social history: Lifetime non-smoker Allergies Allergy/AdvReac Type Severity Reaction Status Date / Time No Known Allergies Allergy Verified 07/06/24 22:16 Home Medications Medication Instructions Recorded Confirmed Type ascorbic acid (vitamin C) 500 mg 500 mg PO DAILY 05/25/24 07/06/24 History capsule,extended release omega 4-iaj-imw-fish oil 60 mg-90 1 cap PO DAILY 05/25/24 07/06/24 History mg-500 mg capsule (Fish Oil) omeprazole 20 mg capsule,delayed 20 mg PO DAILY 05/25/24 07/06/24 History release aspirin 81 mg capsule 81 mg PO DAILY 07/06/24 07/06/24 History diclofenac sodium 75 mg 74 mg PO 2XD PRN Inflammation 07/06/24 07/06/24 History tablet,delayed release Patient History Surgical History (Updated 05/25/24 @ 07:59 by KACEY aGrnett) H/O hernia repair 2016 Family History (Updated 05/25/24 @ 08:00 by KACEY Garnett) Grandmother Diabetes Sister Hypertension Myocardial infarction Mother Hypertension Myocardial infarction Father CHF (congestive heart failure) Prostate cancer Brother Prostate cancer Denies family history of Ovarian cancer Breast cancer Colorectal cancer Social History (Updated 05/25/24 @ 08:01 by KACEY Garnett) Smoking Status: Never smoker Second Hand Exposure: No; Do You Dip or Chew Tobacco: No; Hx Alcohol Use: Yes Alcohol type: beer and hard liquor Alcohol Intake Frequency: Monthly or Less Hx Substance Use: No Preferred Language: Mohawk Communication Ability: Effective Button Clamper Required: No Beliefs That Will Affect Care: None marital status: Current Living Situation: Spouse current occupational status: employed current occupation: [employer] Feels Safe at Home: Yes Diet: regular caffeine: Yes (tea) during the past year weight has: remained stable Dental Care, Regularly: No Physical Activity Frequency: 1-2 Times per Week Seatbelt Use: always Sunscreen Use: Yes Do you think of yourself as: straight/heterosexual Gender Identity: Male Review of Systems 2 Review of Systems: All systems reviewed & are unremarkable except as noted in HPI & below Physical Exam 2 Physical Exam: Constitutional: No acute distress HEENT: EOMI, PERRLA Respiratory system: Good air entry bilaterally, no wheeze, no rhonchi, mild crackles bilateral lower lobes CVS: S1-S2 positive, no murmurs or gallops Abdomen: Soft, nontender, nondistended, positive bowel sounds x4 Extremities: +2 pulses bilaterally radialis, no cyanosis, no edema Neuro: Awake alert oriented x3 Psych: Normal mood and affect Skin: no rashes, warm and dry Lymphatic: no cervical or axillary lymphadenopathy Results & Data Results & Data Vital Signs (Past 12 Hours) Vital Signs Temp Pulse Pulse Resp BP Pulse Ox O2 Del Method 07/07/24 10:41 62 19 181/107 H 99 Room Air 07/07/24 07:30 36.6 C 67 16 130/84 95 Room Air 07/07/24 07:12 62 07/07/24 03:51 36.6 C 80 16 159/70 H 95 Room Air Laboratory Results 07/06/24 18:40 07/07/24 07:50 Coding Level of Care Code 78643 INT INP/OBS CARE 375MIN Diagnoses Acute coronary syndromes I24.9 GERD (gastroesophageal reflux disease) K21.9 Chest pain R07.9 Hypertension I10 Hypersomnia G47.10
--- NOTE | 2024-07-07 13:09 | Electrocardiogram Report ---
Test Reason : Blood Pressure : */* mmHG Vent. Rate : 83 BPM Atrial Rate : 83 BPM P-R Int : 144 ms QRS Dur : 94 ms QT Int : 388 ms P-R-T Axes : 40 11 33 degrees QTcB Int : 455 ms Normal sinus rhythm Poor R wave progression, consider anterior HI vs. lead placement vs. LVH Abnormal ECG No previous ECGs available Confirmed by Lc Adkins ([id number]) on 07/07/2024 1:09:08 PM Referred By: REFERRED SELF Confirmed By: Lc Adkins
[2024-07-07] MEDS: lisinopril 5 MG TAB PO SCH (13:10)
[2024-07-07 14:29] LABS: Basophils # (auto) 0.03 K/uL (0.00-0.20); Basophils % (auto) 0.3 %; Eosinophils % (auto) 0.9 %; Hematocrit (blood only) 44.7 % (42.0-52.0); Immature Granulocytes # (auto) 0.04 K/uL (0.01-0.20); Immature Granulocytes % (auto) 0.4 %; Lymphocytes # (auto) 1.16 K/uL (1.20-3.40); Lymphocytes % (auto) 10.3 %; Mean Corpuscular Hemoglobin 28.1 pg (25.0-34.0); Mean Corpuscular Hgb Conc 33.6 g/dL (32.0-36.0); Mean Corpuscular Volume 83.7 fL (80.0-100.0); Mean Platelet Volume 9.1 fL (9.4-12.4); Monocytes # (auto) 0.88 K/uL (0.11-0.59); Monocytes % (auto) 7.8 %; Neutrophils # (auto) 9.09 K/uL (1.40-6.50); Neutrophils % (auto) 80.3 %; Platelet Count 254 K/uL (130-400); RDW Coefficient of Variation 12.8 % (11.5-14.5); RDW Standard Deviation 38.8 fL (36.4-46.3); Red Blood Count 5.34 M/uL (4.70-6.10)
[2024-07-07] MEDS: lisinopril 10 MG TAB PO ONE (14:50)
[2024-07-07] MEDS: POLYETHYLENE (MIRALAX) 17 GM PACK PO PRN (17:25)
[2024-07-08] MEDS: TICAGRELOR 90 MG TAB PO SCH (00:04)
[2024-07-08 03:02] LABS: BUN Creatinine Ratio 14.6 (10-20); Calcium 8.9 mg/dl (8.6-10.3); Creatinine Clr Calc Pharmacy 110.5 ml/min; Magnesium 2.2 mg/dl (1.7-2.4); Potassium 3.9 mmol/L (3.5-5.1)
[2024-07-08 06:53] LABS: Chol HDL Ratio 7.3 (0-5)
[2024-07-08 08:26] LABS: Estimated Average Glucose 111 mg/dl; Hemoglobin A1C 5.5 % (4.5-5.6)
--- NOTE | 2024-07-08 08:59 | Critical Care Progress Note ---
Date of Service July 08, 2024 Assessment & Plan (1) Acute coronary syndromes: (2) GERD (gastroesophageal reflux disease): (3) Chest pain: (4) Hypertension: (5) Hypersomnia: Plan 54-year-old male was admitted to the hospital because of chest pain. On the floor heart alert was called and patient was taken to the [employer] Past medical history: GERD, peptic ulcer disease 2D echo 07/07/2024: EF 55-60%, mild MR, RV not well-visualized -- STEMI S/p CLIFF circumflex on 07/07/2024 Continue with dual antiplatelet therapy Trend troponin 2D echo 07/07/2024 with an LVEF of 55 to 60%. Mild mitral regurgitation. No regional wall wall motion abnormalities. Continue metoprolol 25 twice daily, rosuvastatin 20 mg daily, aspirin, Brilinta, lisinopril. -- GERD with peptic ulcer disease Continue with pantoprazole -- Hypersomnia I do recommend polysomnography to be done as an outpatient --Prophylaxis VTE: None GI: Pantoprazole Lines: Peripheral Diet: Cardiac Will downgrade out of ICU. Admission and Anticipated Discharge Date Admission Date: July 06, 2024 Subjective Patient with no issues overnight. Denies any chest pain or shortness of breath. No nausea or vomiting. He notes that his back is bothering him a bit and he had difficulty sleeping in the hospital bed. Review of Systems Review of Systems: All systems reviewed & are unremarkable except as noted in HPI & below Physical Exam Physical Exam: Constitutional: No acute distress HEENT: EOMI, PERRLA Respiratory system: Good air entry bilaterally, no wheeze, no rhonchi, mild crackles bilateral lower lobes CVS: S1-S2 positive, no murmurs or gallops Abdomen: Soft, nontender, nondistended, positive bowel sounds x4 Extremities: +2 pulses bilaterally radialis, no cyanosis, no edema Neuro: Awake alert oriented x3 Psych: Normal mood and affect Skin: no rashes, warm and dry Lymphatic: no cervical or axillary lymphadenopathy Results & Data Results & Data Vital Signs (Past 12 Hours) Vital Signs Temp Pulse Resp BP Pulse Ox 07/08/24 08:00 78 07/08/24 06:15 80 26 H 149/92 H 95 07/08/24 05:03 78 18 95 07/08/24 04:06 73 17 93 07/08/24 03:03 81 28 H 07/08/24 03:00 36.9 C 07/08/24 02:06 72 19 151/99 H 92 07/08/24 01:48 72 22 95 07/08/24 01:15 73 16 146/88 H 94 07/08/24 00:48 79 6 L 93 07/08/24 00:08 36.9 C 07/08/24 00:06 74 11 L 139/90 96 07/08/24 00:00 73 07/07/24 21:03 74 16 159/98 H 94 07/07/24 20:57 77 13 94 Coding Level of Care Code 38670 SUB INP/OBS CARE 235MIN Diagnoses Acute coronary syndromes I24.9 GERD (gastroesophageal reflux disease) K21.9 Chest pain R07.9 Hypertension I10 Hypersomnia G47.10
[2024-07-08] MEDS ORDERED: TICAGRELOR 90 MG TAB PO SCH (09:00)
[2024-07-08] MEDS ORDERED: ATORVASTATIN 40 MG TAB PO SCH (09:00)
[2024-07-08] MEDS: ASPIRIN 81 MG ECTAB PO SCH (09:06)
[2024-07-08] MEDS: lisinopril 20 MG TAB PO SCH (09:06)
[2024-07-08 10:28] VITALS: BP 147/88; RESP 15; O2SAT 97
[2024-07-08 10:29] VITALS: TEMP 98.3
--- NOTE | 2024-07-08 11:19 | Cardiology Progress Note ---
Date of Service July 08, 2024 Assessment & Plan (1) Acute coronary syndromes: Plan: -Patient had a CLIFF placed in the mid LCx. -High-sensitivity troponin peaked at 26,910. -Echocardiogram with normal LV function and no wall motion abnormality. -Continue rosuvastatin, metoprolol, lisinopril, Brilinta, and aspirin. -Hospital discharge today versus tomorrow? -We will enroll in cardiac rehabilitation. -I will be happy to see the patient in follow-up. (2) Hypercholesterolemia: Plan: -Agree with addition of rosuvastatin. Admission and Anticipated Discharge Date Admission Date: July 06, 2024 Subjective The patient is resting comfortably in bed without complaints of chest pain or dyspnea. He is anxious for hospital discharge. Physical Exam Physical Exam: In general this is a well-developed well-nourished white male in no acute distress. HEENT exam is negative. Neck reveals normal carotid upstrokes without bruits. Jugular venous pressure is flat at 90. There is no thyromegaly. Cardiovascular exam reveals a regular rhythm with a normal S1 and S2. No S3, S4, or murmurs are noted. Lungs are clear without rales, rhonchi, or wheezes. Abdomen is soft without bruits. Extremities reveal intact radial artery pulses bilaterally. Right wrist dressing dry, no bruits. Results & Data Vital Signs (Past 12 Hours) Vital Signs Temp Pulse Resp BP Pulse Ox 07/08/24 09:00 36.8 C 07/08/24 08:03 82 15 147/88 H 97 07/08/24 08:00 78 07/08/24 06:15 80 26 H 149/92 H 95 07/08/24 05:03 78 18 95 07/08/24 04:06 73 17 93 07/08/24 03:03 81 28 H 07/08/24 03:00 36.9 C 07/08/24 02:06 72 19 151/99 H 92 07/08/24 01:48 72 22 95 07/08/24 01:15 73 16 146/88 H 94 07/08/24 00:48 79 6 L 93 07/08/24 00:08 36.9 C 07/08/24 00:06 74 11 L 139/90 96 07/08/24 00:00 73 Laboratory Results High-sensitivity troponin peaked at 26,910. LDL cholesterol elevated 147 with an HDL low at 30. Diagnostic Findings cardiac monitor technician is benign. PG Care Time/CCT Total # of Minutes Spent Total Time Spent with Patient: Total time spent is greater than 50% in coordination of care (as documented) at patient's floor/unit and/or counseling patient: Coding Level of Care Code 77531 SUB INP/OBS CARE 3/50MIN Diagnoses Acute coronary syndromes I24.9 Hypercholesterolemia E78.00
--- NOTE | 2024-07-08 11:52 | Discharge Summary ---
Date of Service July 08, 2024 Admission HPI Per Admitting Provider 54 yo male PMHx GERD/PUD admitted for chest pain. Chest pain started today described as substernal burning pain that radiates down the left arm. This is the first time that he has experienced this type of chest discomfort. He does have an extensive family history of cardiac disease. He denies smoking history, he is not a big drinker. Early this year he changed his diet to incorporate more vegetables and lean proteins. Yesterday was his birthday and today he went out to lunch at [facility] where he consumed a heavy meal and two margaritas. At the time of admission the patient denies ongoing chest pain. ED Course EKG without ischemic changes CTPE largely unremarkable: 1. No aortic dissection or aneurysm. 2. No pulmonary embolus. 3. Mild cardiomegaly and left ventricular hypertrophy. There is mild left anterior coronary calcification. 4. No pulmonary infiltrate or pleural effusion. CXR reveals: Mild pulmonary vascular congestion Labs reveal: HS Trop 31.9 --> 118.8 Pt is hypertensive, otherwise VSS Received 324 ASA, fentanyl 50 mcg Admission Exam (Per Admitting) Constitutional The patient is awake, alert and oriented 3, well developed and well nourished, normocephalic and atraumatic, lying in bed and in no acute distress. HEENT--PERRL, EOMI, mucous membranes and oropharynx mildly dry Neck--supple. No JVD. No bruits. Thyroid normal, trachea midline, no adenopathy. Heart--normal S1 and S2. No murmurs, rubs or gallops. Lungs--clear bilaterally, no respiratory distress, no accessory muscle use. Abdomen--normal bowel sounds and soft. Extremities--no cyanosis or clubbing. No edema. Dermatologic--normal skin turgor, normal color, no abnormal lymph nodes, no rash. Neurologic--cranial nerves II through XII grossly intact. Rheumatologic--normal range of motion. Psychiatric--normal affect. Discharge Data Consultations 07/06/24 20:47 ED Decision to Admit Stat 07/06/24 22:46 Consult Cardiology Routine Procedures Performed Operation Date: 07/07/24 11:00 Actual Procedures p Cineradiography w/Routine Exam - Mp Watters MD, PhD Hospital Course (1) Non-ST elevation OK (NSTEMI): (2) GERD (gastroesophageal reflux disease): Plan 54 yo male PMHx GERD/PUD admitted for chest pain. Chest pain started today described as substernal burning pain that radiates down the left arm. #STEMI Stable post CLIFF Continue ASA and Ticagrelor and Statin, metoprolol follow up cardiology outpatient #GERD/Hx PUD Protonix 40mg daily while admitted Tums Will check liver US given flank discomfort HTN Lisinopril 20mg daily FENGI: Heart healthy Code status: full DVT prophylaxis: Lovenox Isolation: none Disposition: med/tele Coding Level of Care Code 87435 INP/OBS DISCH >30 MIN Diagnoses Non-ST elevation OK (NSTEMI) I21.4 GERD (gastroesophageal reflux disease) K21.9 Time Spent (min) 35
--- NOTE | 2024-07-08 11:58 | Electrocardiogram Report ---
Test Reason : Blood Pressure : */* mmHG Vent. Rate : 65 BPM Atrial Rate : 65 BPM P-R Int : 140 ms QRS Dur : 92 ms QT Int : 422 ms P-R-T Axes : 58 37 62 degrees QTcB Int : 438 ms Normal sinus rhythm Inferior injury pattern * ACUTE HI Abnormal ECG When compared with ECG of 06-Jul-2024 17:42, ST elevation now present in Inferior leads Confirmed by Lc Adkins ([id number]) on 07/08/2024 11:58:00 AM Referred By: REFERRED SELF Confirmed By: Lc Adkins
--- NOTE | 2024-07-08 12:01 | Electrocardiogram Report ---
Test Reason : Blood Pressure : */* mmHG Vent. Rate : 71 BPM Atrial Rate : 71 BPM P-R Int : 158 ms QRS Dur : 92 ms QT Int : 404 ms P-R-T Axes : 44 16 3 degrees QTcB Int : 439 ms Normal sinus rhythm Inferior infarct , age undetermined Abnormal ECG When compared with ECG of 07-Jul-2024 10:34, (unconfirmed) Serial changes of evolving Inferior infarct is now Present T wave inversion now evident in Inferior leads Confirmed by Lc Adkins ([id number]) on 07/08/2024 12:01:05 PM Referred By: REFERRED SELF Confirmed By: Lc Adkins
[2024-07-08 13:37] VITALS: PULSE 88
--- NOTE | 2024-07-09 14:01 | Electrocardiogram Report ---
Test Reason : Blood Pressure : */* mmHG Vent. Rate : 77 BPM Atrial Rate : 77 BPM P-R Int : 154 ms QRS Dur : 86 ms QT Int : 382 ms P-R-T Axes : 33 -18 -14 degrees QTcB Int : 432 ms Normal sinus rhythm Normal ECG When compared with ECG of 07-Jul-2024 12:22, Criteria for Inferior infarct are no longer Present Confirmed by Roosevelt Raymundo ([id number]) on 07/09/2024 2:01:29 PM Referred By: REFERRED SELF Confirmed By: Roosevelt Raymundo
--- NOTE | 2024-07-09 16:21 | Cardiac Catheterization ---
[facility] Data: Clerical Specialist Cardiac Status Clinical evaluation leading to the procedure CAD Presenation: STEMI Anginal Classification: CCS IV Heart Failure: No Cardiogenic Shock within 24 Hours: No Cardiac Arrest within 24 Hours: No Imaging Studies Past 6 Months: Yes Stress Studies Past 6 Months: No Coronary Anatomy Dominant: Co-Dominant Left Main (% Stenosis): Normal LAD (% Stenosis): Proximal (Long, 50 to 60%) and Distal (Scattered up to 60%) Circumflex (% Stenosis): Distal (100%. YENI 0 flow) OM1 (% Stenosis): Normal OM2 (% Stenosis): Normal OM3 (% Stenosis): Normal L PL1 (% Stenosis): Normal L PDA (% Stenosis): Normal RCA (% Stenosis): Normal R PDA (% Stenosis): Normal R PL1 (% Stenosis): Normal Diagnostic Physicians Name: Mp Watters MD, PhD Closure Device Percutaneous Entry Location: Radial Closure Device: Radial Band Recommendations: Medical Therapy and/or Counseling and PCI without planned CABG PCI Indication: PCI for STEMI - Unstable Lesion Segment Name: Distal circumflex Culprit Artery: Yes Stenosis Prior to Rx (%): 100% Chronic Total Occlusion: No Pre-Procedure YENI Flow: 0 Previously Treated Lesion: No Lesion Complexity: Non-High/Non-C Lesion Length (mm): 24 mm Thrombus Present: Yes Bifurcation Lesion: Yes Guidewire Across Lesion: Yes Intraprocedure Events Significant Disection: No Perforation: No Cardiac Cath Procedure Full Procedure Date July 07, 2024 Pre-Procedure Diagnosis Pre-Procedure Diagnosis: STEMI AUC Score AUC Score: 09 Post-Procedure Diagnosis Post-Procedure Diagnosis: Severe CAD and Successful PCI Procedure(s) Performed Procedure(s) Performed: Coronary Angiography, Drug Eluting Stent and Ultrasound Guided Vascular Access Estimation Manager Mp Watters MD, PhD Estimated Blood Loss Estimated Blood Loss: 5 cc Medication(s) Medication(s): Fentanyl, Heparin, Lidocaine 1% and Versed Summary of Findings Brief description: Patient was brought emergently to the cardiac catheterization suite where he was shaved and prepped in a sterile fashion. Sedated using IV Versed and fentanyl. Soft tissue the right wrist were anesthetized using 2 mL of 1% Xylocaine. Using the ultrasound for guidance (image saved), the right radial artery was accessed and a 6 [place] radial artery glide sheath was placed. Patient was provided anticoagulation with IV heparin and antispasmodics including nicardipine and nitroglycerin. All catheters were advanced and exchanged over a 0.035 J-tip wire. Left coronary angiography in orthogonal views with a 5 [place] 4 diagnostic catheter. Right coronary angiography in orthogonal views with a 5 [place] 4 diagnostic catheter. Diagnostic catheters were removed. Decision was made to proceed with PCI of the circumflex. ACT was checked and additional heparin was provided as needed to maintain therapeutic anticoagulation. This was repeated several times throughout the case. Patient was also given Brilinta 180 mg p.o. A 6 [place] EBU 3.0 guide catheter was advanced over the J-wire and used to engage the left main coronary. BMW reversal guidewire was advanced under fluoroscopic guidance and positioned distally in the circumflex. Lesion was predilated with a 2.5 x 12 mm trek balloon at 8 mirta, 4 mirta, and 8 mirta. A 2.75 x 22 mm [place] drug-eluting stent was then advanced and positioned across the lesion. It was deployed at 12 mirta. BMW universal guidewire was removed and angiography was performed. A second BMW dorsal guidewire was advanced and positioned in the most distal branch of the circumflex. A 2.5 x 12 mm [place] drug-eluting stent was advanced over the guidewire and was positioned with its proximal edge just inside the distal edge of the original stent with stent extending to the most distal branch. Stent was then deployed at 12 mirta. A second inflation was performed at 13 mirta. Stent balloon was then pulled back across the overlapped segment where the stent was dilated to 18 mirta making the overlap segment the same diameter as the original stent. Stent balloon was removed. Guidewire was removed and final angiographic evaluation was performed. Guide catheter was removed. Radial artery sheath was removed. Hemostasis was obtained using the TR band. Patient was asymptomatic and hemodynamically stable. He was returned return to the ICU for further workup and management. Coronary angiography findings: [id number]-ldspciy short vessel bifurcating into the LAD and circumflex. No angiographically evident disease. [id number]-[id number]-sfsphhx and transapical. Proximally there is a long eccentric lesion of 50-60 percent. Mid vessel has no disease. The distal vessel has scattered less than 60% stenosis. [id number]-zlnhn-szvrvex and codominant. Proximal and mid segment have mild luminal irregularities. The distal segment remains large and has 100% occlusion. YENI 0 flow. This is the culprit lesion. Circumflex provides 2 small obtuse marginal branches and then a large branching OM 3. Distally it provides a small PLB and a medium PDA. HPC-sgydy-obhphpn and codominant. RCA has mild luminal irregularities and bifurcates into a large PDA and a large branching posterolateral. These vessels have mild scattered disease of less than 20%. PCI of LCx-0% residual stenosis post PCI YENI-3 flow post PCI No evidence of dissection or perforation post PCI Summary: 1. Acute thrombotic stenosis of the circumflex is culprit for AMI. 2. Successful PCI of the circumflex with implantation of 2 overlapped drug- eluting stents. 3. Angiographically moderate LAD stenosis as described. 4. Dual antiplatelet therapy for 1 to 2 years. Guideline directed medical therapy for secondary prevention including; aspirin, lisinopril, metoprolol, and rosuvastatin. Hemodynamics Rest Ao:: 151/107 mmHg Final Ao: 155/98 mmHg LV: Not performed Recommendations Recommendations: Medical Therapy and/or Counseling and PCI without planned CABG Radiation Exposure (mGy) 2049 mGy, fluoroscopy time 10.2 minutes Contrast (mls) 200 cc Anesthesia 3 mg Versed, 75 mcg fentanyl IV. Start time 1125, end time 1201 Procedural Complication(s) None Disposition ICU I attest to the content of the Intraoperative Record and any orders documented therein. Any exceptions are noted below. [facility] Card Cath Procedure Codes Cardiac Catheterization Procedure 1: Cardiovascular Cath Procedures: 80087 Coronaries Therapeutic Services & Ancillary Procedure 1: Cardiovascular Tx and Anc Procedures: 97609 Ultrasonic Guidance Vascular Access Moderate Sedation Procedure 1: Sedation/Anesthesia: 01065 Mod Sedation by the same physician;Init15 Min Child Age 5 & Up (Initial 15 minutes, start time 1125) Procedure 2: Sedation/Anesthesia: 64182 Mod Sedation by the same physician; Ea [id number] Minutes (Additional 21 minutes, end time 1201) Stenting Procedure 1: Cardiovascular Stent Procedures: 46799 Perc transluminal revascularization of acute sub/total occl, aMI (LCx) PG Care Time/CCT Total # of Minutes Spent Total Time Spent with Patient: Total time spent is greater than 50% in coordination of care (as documented) at patient's floor/unit and/or counseling patient:
== END 2024-07-08 13:37 | disposition home or self-care (01) | DRG 322 ==
LOC: ED 17:28 → SUATTDRO 21:31 → 2N 21:31 → 1E 07-07 12:19